=== PATIENT | male | born 1990 | race Asian ===

== ENCOUNTER → 2016-04-09 | Outpatient (CLI) | payer OTHER ==
[~2016-04-09] MED LIST: AMOX-355 PO; PRD20T PO
--- NOTE | 2016-04-09 10:05 | Diagnostic Imaging Report ---
PROCEDURE: CT sinuses without contrast TECHNIQUE: Multiple contiguous axial images were obtained through the sinuses without the use of intravenous contrast. Coronal and sagittal reformations were then performed. INDICATION: Nasal polyps. FINDINGS: There is opacification of frontal, maxillary and sphenoid sinuses as well as the ethmoid air cells, bilaterally. Rightward septal deviation and spurring is also noted. Abnormal tissue opacifies both ostiomeatal complexes which appear to be widened. No other significant bony remodeling is identified. There are areas of increased density present within the maxillary sinuses which may indicate associated hemorrhage. IMPRESSION: Findings are consistent with extensive, chronic pansinusitis with obstruction of ostiomeatal complexes, bilaterally. Dictated by: Dictated on workstation # [id number]
== END ==
LOC: RAD 09:18
PROVIDERS: ATTEND Otolaryngology Otolaryngology/Facial Plastic Surgery
DX: J33.9 Nasal polyp, unspecified (principal)
CPT/HCPCS: 70486

== ENCOUNTER 2016-04-23 10:46 | Outpatient (CLI) | payer OTHER ==
[~2016-04-23] VITALS: Ht 172.7 cm; Wt 93.0 kg
[2016-04-23 10:57] VITALS: BP 140/88
[2016-04-23 11:33] LABS: BASOPHILS % (AUTO) 0 % (0-10); EOSINOPHILS # (AUTO) 0.2 10^3/uL (0.0-0.3); EOSINOPHILS % (AUTO) 1 % (0-10); LYMPHOCYTES # (AUTO) 4.9 X 10^3 (1.0-4.0); LYMPHOCYTES % (AUTO) 30 % (12-44); MEAN CORPUSCULAR HEMOGLOBIN 30 PG (25-34); MEAN CORPUSCULAR HGB CONC 34 G/DL (32-36); MEAN CORPUSCULAR VOLUME 86 FL (80-99); MEAN PLATELET VOLUME 9.7 FL (7.4-10.4); MONOCYTES # (AUTO) 1.6 X 10^3 (0.0-1.0); MONOCYTES % (AUTO) 10 % (0-12); NEUTROPHILS # (AUTO) 9.7 X 10^3 (1.8-7.8); NEUTROPHILS % (AUTO) 59 % (42-75); PLATELET COUNT 340 10^3/uL (130-400); RED BLOOD COUNT 5.32 10^6/uL (4.35-5.85); RED CELL DISTRIBUTION WIDTH 12.8 % (10.0-14.5); WHITE BLOOD COUNT 16.3 10^3/uL (4.3-11.0)
[2016-04-23 11:56] LABS: BAND NEUTROPHILS 1 %; BASOPHILS % (MANUAL) 0 %; EOSINOPHILS % (MANUAL) 5 %; LYMPHOCYTES % (MANUAL) 36 %; NEUTROPHILS % (MANUAL) 52 %
[2016-04-23 11:57] LABS: ANION GAP 12 MMOL/L (5-14); BLOOD UREA NITROGEN 14 MG/DL (7-18); BUN/CREATININE RATIO 16; CALCIUM 9.1 MG/DL (8.5-10.1); CARBON DIOXIDE 22 MMOL/L (21-32); CHLORIDE 107 MMOL/L (98-107); CREATININE SERUM 0.87 MG/DL (0.60-1.30); GFR ESTIMATED > 60; GLUCOSE 98 MG/DL (70-105); POTASSIUM 3.6 MMOL/L (3.6-5.0); SODIUM 141 MMOL/L (135-145)
== END 2016-04-23 11:15 | disposition home or self-care (01) ==
LOC: PREOP 10:46
PROVIDERS: ATTEND Otolaryngology Otolaryngology/Facial Plastic Surgery
DX: Z01.812 Encounter for preprocedural laboratory examination (principal); Z11.2 Encounter for screening for other bacterial diseases; J32.9 Chronic sinusitis, unspecified; J34.2 Deviated nasal septum
CPT/HCPCS: 36415; 80048; 85007; 85027; 87081

== ENCOUNTER 2016-04-27 08:45 | Day surgery (SDC) | payer OTHER ==
[~2016-04-27] VITALS: Ht 172.7 cm; Wt 93.0 kg
--- OUTSIDE RECORDS SUMMARY | 2016-04-27 09:55 | XMS REPORT | Continuity of Care Document ---
Author Author [facility] Organization [facility] Address Unknown Phone Unavailable Care Team Providers Care Optical Instruments Supervisor Name Role Phone SYDNEY DE LUNA DO PCP Insurance Providers Payer Name Policy Number Subscriber Name Relationship Student [employer] [id number] Sultan Lianna 17 Self / Same As Patient Advance Directives Directive Response Recorded Date/Time Advance Directives No 04/23/16 10:57am Resuscitation Status Full Code 04/23/16 10:57am Problems No problem information available. Medications No known medications. Social History Social History Problem Response Recorded Date/Time Alcohol Use Denies Use 04/23/2016 10:57am Recreational Drug Use No 04/23/2016 10:57am Recent Foreign Travel No 04/23/2016 10:57am Recent Infectious Disease Exposure No 04/23/2016 10:57am Smoking Status Current Everyday Smoker 04/23/2016 10:57am Type Used Hookah 04/23/2016 10:57am Recent Hopitalizations No 04/23/2016 10:57am Query Response Start Date Stop Date Smoking Status Current Everyday Smoker Hospital Discharge Instructions No hospital discharge instructions. Plan of Care Discharge Date 04/23/16 11:15am Prescriptions See Medication Section Functional Status No functional status results. Allergies, Adverse Reactions, Alerts No known allergies. Immunizations No immunization records. Vital Signs Acute Vital Signs Vital Response Date/Time Pulse Rate (adult) 75 bpm (60 - 90) 04/23/2016 10:57am O2 Sat by Pulse Oximetry 100 % (88 - 100) 04/23/2016 10:57am Blood Pressure 140/88 mm Hg 04/23/2016 10:57am Blood Pressure Mean 105 mm Hg 04/23/2016 10:57am Pain Numeric Pain Scale 0-No Pain 04/23/2016 10:57am Height (Feet) 5 feet 04/23/2016 10:56am Height (Inches) 8.00 inches 04/23/2016 10:56am Height (Calculated Centimeters) 172.401445 cm 04/23/2016 10:56am Weight (Pounds) 205 pounds 04/23/2016 10:56am Weight (Ounces) 0.0 oz 04/23/2016 10:56am Weight (Calculated Grams) 04875.44 gm 04/23/2016 10:56am Weight (Calculated Kilograms) 92.572458 kilograms 04/23/2016 10:56am Calculated BMI 31.2 04/23/2016 10:56am Results No known relevant diagnostic tests, laboratory data and/or discharge summary. Procedures No known history of procedures. Encounters Encounter Location Arrival/Admit Date Discharge/Depart Date Attending Provider Departed Clinic [facility] 04/23/16 10:46am 04/23/16 11: 15am GIBRAN SHELLEY MD Registered Clinic [facility] 04/09/16 9:18am GIBRAN SHELLEY MD
--- OUTSIDE RECORDS SUMMARY | 2016-04-27 09:55 | XMS REPORT | Continuity of Care Document ---
Author Author [facility] Organization [facility] Address Unknown Phone Unavailable Care Team Providers Care Janitor Head Name Role Phone SYDNEY DE LUNA DO PCP Insurance Providers Payer Name Policy Number Subscriber Name Relationship [employer] [id number] Sultan Lianna 17 Self / Same As [...] 8.00 inches 04/23/2016 10:56am Height (Calculated Centimeters) 172.749351 cm 04/23/2016 10:56am Weight (Pounds) 205 pounds 04/23/2016 10:56am Weight (Ounces) 0.0 oz 04/23/2016 10:56am Weight (Calculated Grams) 12986.44 gm 04/23/2016 10:56am Weight (Calculated Kilograms) 92.043606 kilograms 04/23/2016 10:56am Calculated BMI 31.2 04/23/2016 10:56am Results No known relevant diagnostic tests, laboratory data and/or discharge summary. Procedures No known history of procedures. Encounters Encounter Location Arrival/Admit Date Discharge/Depart Date Attending Provider Departed Clinic [facility] 04/23/16 10:46am 04/23/16 11: 15am GIBRAN SHELLEY MD Registered Clinic [facility] 04/09/16 9:18am GIBRAN SHELLEY MD
[2016-04-27] MEDS ORDERED: CATHETER FLUSH 10 ML SYR IV PRN (10:00)
[2016-04-27] MEDS ORDERED: AMPICILLIN/SULBACTAM 1.5 GM/NS 50 ML IVPB IV ONE ×2 (10:00)
[2016-04-27] MEDS ORDERED: HYDROCORTISONE 100 MG/2 ML (Solu-CORTEF) VIAL IV ONE (10:00)
[2016-04-27] MEDS: LACTATED RINGERS 1,000 ML IV PRN ×2 (10:19→13:40)
[2016-04-27] MEDS ORDERED: PHENYLEPHRINE 0.5% NASAL SPR (NEO-SYNEPHRINE) REG ONE (10:33)
[2016-04-27] MEDS ORDERED: LIDOCAINE/EPI 1%-1:100,000 (XYLOCAINE) 20ML ONE (10:33)
[2016-04-27] MEDS ORDERED: COCAINE HCL 4% 2 ML SYR ONE (10:34)
[2016-04-27] MEDS ORDERED: BSS 15 ML ONE (10:34)
[2016-04-27] MEDS ORDERED: SEVOFLURANE (ULTANE) 15 ML INHAL SOLN ONE ×6 (10:51→13:12)
[2016-04-27] MEDS ORDERED: proPOfol 200 MG/20 ML (DIPRIVAN) VIAL IV ONE (10:51)
[2016-04-27] MEDS ORDERED: HURRICAINE EXT TUBE (BENZOCAINE) ONE (10:51)
[2016-04-27] MEDS ORDERED: ATRACURIUM 50 MG/5 ML (TRACRIUM) IV ONE (10:51)
[2016-04-27] MEDS ORDERED: LIDOCAINE PF 2% 10 ML (XYLOCAINE) AMP ONE (10:51)
[2016-04-27] MEDS ORDERED: LACTATED RINGERS 1,000 ML IV ONE (10:51)
[2016-04-27] MEDS ORDERED: DEXAMETHASONE PF 10 MG/ML (DECADRON) VIAL ONE (10:51)
[2016-04-27] MEDS ORDERED: fentaNYL INJECTION 100 MCG/2 ML AMP ONE ×2 (10:52→14:08)
[2016-04-27] MEDS ORDERED: MIDAZOLAM 2 MG/2 ML (VERSED) VIAL ONE (10:52)
[2016-04-27 11:04] VITALS: BP 131/82
--- NOTE | 2016-04-27 11:43 | Progress Note-Pre Operative ---
Pre-Operative Progress Note H&P Reviewed The H&P was reviewed, patient examined and no changes noted. Date H&P Reviewed: Apr 27, 2016 Time H&P Reviewed: 11:00 Pre-Operative Diagnosis: Bilat Chronic Sinusitis, Nasal polyps, dev septum hyper of inf turbs GIBRAN SHELLEY MD Apr 27, 2016 11:43 am
[2016-04-27] MEDS ORDERED: D5 1/2 NS W/KCL 20 MEQ/L 1,000 ML IV SCH (13:32)
--- NOTE | 2016-04-27 13:32 | Progress Note-Post Operative ---
Post-Operative Progess Note Pre-Operative Diagnosis Bilat Chronic Sinusitis, Nasal polyps, dev septum hyper of inf turbs Post-Operative Diagnosis same Post-Op Procedure Note Date of Procedure: Apr 27, 2016 Name of Procedure: Bilat ESS, Nasal Septoplasty, Bialt Partial Red of the INf Turbs Anesthesia Type get Estimated blood loss (mL): 250cc Packing: DNP bilat Specimen(s) collected nasal spetum , Bilat sinus disease GIBRAN SHELLEY MD Apr 27, 2016 1:32 pm
[2016-04-27] MEDS ORDERED: PROMETHAZINE INJ 25 MG/ML (PHENERGAN) AMP IVP PRN (13:45)
[2016-04-27] MEDS ORDERED: predniSONE 20 MG TAB PO ONE (13:45)
[2016-04-27] MEDS ORDERED: HYDROcodone/APAP 5 MG/325 MG (LORTAB) TAB PO PRN (13:45)
[2016-04-27] MEDS ORDERED: ACETAMINOPHEN 325 MG TABLET/CAPLET (TYLENOL) PO PRN (13:45)
[2016-04-27] MEDS ORDERED: morphine INJ 10 MG/ML 1ML (SYR OR VIAL) ONE (13:47)
[2016-04-27] MEDS: morphine INJ 10 MG/ML 1ML (SYR OR VIAL) IV PRN ×2 (13:50→13:56)
[2016-04-27] MEDS ORDERED: ONDANSETRON 4 MG/2 ML (SDV) Z0FRAN IV PRN (14:00)
[2016-04-27] MEDS ORDERED: MEPERIDINE (DEMEROL) INJ 50 MG/ML IV PRN (14:00)
[2016-04-27] MEDS ORDERED: PROMETHAZINE INJ 25 MG/ML (PHENERGAN) AMP IV PRN (14:00)
[2016-04-27] MEDS: fentaNYL INJECTION 100 MCG/2 ML AMP IV PRN ×2 (14:11→14:16)
[2016-04-27 14:45] VITALS: BP 134/89
[2016-04-27 15:15] VITALS: BP 143/99
[2016-04-27] MEDS ORDERED: PRD20T PO (15:37)
[2016-04-27] MEDS ORDERED: AMOX-355 PO (15:37)
[2016-04-27 15:45] VITALS: BP 131/99
[2016-04-27 16:05] VITALS: BP 131/99
== END 2016-04-27 16:05 | disposition home or self-care (01) ==
LOC: SDC 08:45
PROVIDERS: ATTEND Otolaryngology Otolaryngology/Facial Plastic Surgery
DX: J32.2 Chronic ethmoidal sinusitis (principal); J32.0 Chronic maxillary sinusitis; J32.3 Chronic sphenoidal sinusitis; J32.1 Chronic frontal sinusitis; J33.9 Nasal polyp, unspecified; J34.2 Deviated nasal septum; J34.3 Hypertrophy of nasal turbinates
CPT/HCPCS: 88304; 88305

== ENCOUNTER 2016-09-09 03:26 | Emergency (ER) | payer OTHER ==
[~2016-09-09] VITALS: Ht 172.7 cm; Wt 93.0 kg
[2016-09-09 04:14] VITALS: BP 0/0
== END 2016-09-09 04:14 | disposition left against medical advice (07) ==
LOC: EDUNIT# 03:26 → ER 03:29
DX: M54.5 Low back pain (principal); Z53.21 Procedure and treatment not carried out due to patient leaving prior to being seen by health care provider
CPT/HCPCS: 99281